=== PATIENT | female | born 1935 | race Caucasian/White ===

== ENCOUNTER → 2017-01-21 08:38 | Outpatient (CLI) | payer MEDICARE, OTHER ==
[2015-11-09 12:22] VITALS: BMI 21.2
[~2017-01-21 08:38] MED LIST: ANDROGEL5 GM; ATIVAN1 MG PO; BAYER CHEWABLE81 MG PO; BUMEX 1 MG TAB1 MG PO; CALTRATE-600600 MG PO; COREG 3.1253.125 MG PO; COZAAR50 MG PO; CRANBERRY; CRESTOR10 MG PO; DESERYL100 MG PO; FIRST-PROG25 MG/SUPP; KLOR-CON 1010 MEQ PO; LEVOTHROID75 MCG PO; LISINOPRIL2.5 MG PO; MAG-OX 400 MG400 MG PO; NITROSTAT0.4 MG SL; PLAVIX75 MG PO; PRAVACHOL40 MG PO; ZAROXOLYN2.5 MG PO
== END | disposition home or self-care (01) ==
LOC: D.RT 08:00
DX: Z51.81 Encounter for therapeutic drug level monitoring (principal); Z79.899 Other long term (current) drug therapy

== ENCOUNTER → 2017-04-12 14:52 | Outpatient (CLI) | payer MEDICARE, OTHER ==
[2015-11-09 12:22] VITALS: BMI 21.2
== END | disposition home or self-care (01) ==
LOC: D.MAMMO 09:45
DX: Z12.31 Encounter for screening mammogram for malignant neoplasm of breast (principal)

== ENCOUNTER → 2017-09-20 14:19 | Outpatient (CLI) | payer MEDICARE, OTHER ==
[2015-11-09 12:22] VITALS: BMI 21.2
== END | disposition home or self-care (01) ==
LOC: D.RT 14:00
DX: I48.91 Unspecified atrial fibrillation (principal); Z79.899 Other long term (current) drug therapy

== ENCOUNTER 2018-07-30 10:32 | Inpatient (IN) | payer MEDICARE, OTHER ==
[~2018-07-30] VITALS: Ht 157.5 cm; Wt 52.7 kg
--- NOTE | ~2018-07-30 | MORECARE ---
CASE MANAGEMENT DISCHARGE SUMMARY PATIENT: CLINTON SCHUMACHER UNIT: [id number] ADM DATE: 07/30/18 AGE: 82 : 37 SEX: F ROOM/BED: D.2229 AUTHOR: FLASHDOC PHYSICIAN: REFERRING PHYSICIAN: DAVE GRAHAM MD DATE OF SERVICE: 08/01/18 Discharge Plan Patient Name: CLINTON SCHUMACHER Facility: [facility]:[place] : 1935 Planned Disposition: Home Anticipated Discharge Date: Discharge Date: Expected LOS: Initial Reviewer: [id number] Initial Review Date: 07/30/2018 Generated: 08/01/18 12:58 pm Comments DCP- Discharge Planning Updated by [email or web address]: Bertha Tripathi on 08/01/18 10:[address] CM met with patient per request. She is concerned that [facility] have not seen her yet. I called Sonia with [facility] and she states that they had called and wanted services to wait until Saturday. She states per the 's request, she tried to call again today and his phone was not accepting calls at this time. States she will try and call patient and son again today to see if they will allow her to come out. I informed patient and gave her the number to [facility]. CM will continue to follow and assist with discharge planning/needs. DCP- Discharge Planning Updated by [email or web address]: Chrissie Uli on 07/30/18 2:[address] CM met with patient in ER/room to discuss dc needs/plans. Patient provided verbal consent to discuss current and ongoing needs with/in the presence of her daughter, Marcela Martinez #[phone], .CM discussed availability of Home Health, Rehab Services and Medical Equipment. PCP: Dr. Pineda ([facility] has not seen him in a long time). [facility]. HHS: None. DME: Uses no medical equipment. Emergency Contact: Marcela Martinez #[phone], Killian Schumacher (spouse who is in hospital) #[phone]. Patient states she feels safe returning to the home environment and at this time, she does not feel she requires additional services upon discharge. CM will continue to follow and assist with dc needs/plans PRN. Patient states she has been up here in the hospital for past 2 weeks taking care of her . Chrissie Mcnally RN CM DCPIA - Discharge Planning Initial Assessment Updated by [email or web address]: Chrissie Mcnally on 07/30/18 3:56 pm * Is the patient Alert and Oriented? Yes * How many steps to enter\exit or inside your home? * PCP Dr. Pineda * Pharmacy [facility] * Preadmission Environment Home with Family * ADLs Independent * Equipment None * Other Equipment Patient states her has all the equipement, but she does not use any. * List name and contact numbers for known caregivers / representatives who currently or will assist patient after discharge: Marcela Martinez (dtr) [phone] Killian Schumacher (spouse) #[phone] * Verbal permission to speak to the caregivers and representatives has been obtained from the patient. Yes * Community resources currently utilized None * Please name any agencies selected above. NA * Additional services required to return to the preadmission environment? No * Can the patient safely return to the preadmission environment? Yes * Has this patient been hospitalized within the prior 30 days at any hospital? No Last DP export: 08/01/18 9:30 Patient Name: CLINTON SCHUMACHER Page 22127 at 1158 All edits/amendments must be made on the electronic document DICTATION DATE: 08/01/181156 POWER TOOL REPAIR TECHNICIAN: RENEE 08/01/181156 RPT#: [id number] DC DATE: STATUS: ADM IN [facility] [address] [place] [address] END OF REPORT
--- NOTE | ~2018-07-30 | MORECARE ---
CASE MANAGEMENT DISCHARGE SUMMARY PATIENT: CLINTON SCHUMACHER UNIT: [id number] ADM DATE: 07/30/18 AGE: 82 : 37 SEX: F ROOM/BED: D.2229 AUTHOR: FLASH,DOC PHYSICIAN: REFERRING PHYSICIAN: DAVE GRAHAM MD DATE OF SERVICE: 08/03/18 Discharge Plan Patient Name: CLINTON SCHUMACHER Facility: [facility]:[place] : 1935 Planned Disposition: Home Anticipated Discharge Date: 08/03/18 Discharge Date: 08/03/2018 Expected LOS: 4 Initial Reviewer: [email or web address] Initial Review Date: 07/30/2018 Generated: 08/03/18 2:45 pm Comments DCP- Discharge Planning Updated by [email or web address]: Audra Millers on 08/03/18 12:[address] CM MET WITH THE PATIENT. SHE DOES NOT FEEL SHE NEEDS ANY HOME HEALTH SERVICES. CM EXPLAINED HOW TO OBTAIN SERVICES SHOULD SHE CHANGE HER MIND. DISCHARGE IMM EXPLAINED AND PATIENT SIGNED. SHE AWAITS HER TRANSPORTATION TO HOME. DENIES ANY NEEDS. DCP- Discharge Planning Updated by [email or web address]: Bertha Tripathi on 08/01/18 10:[address] CM met with patient per request. She is concerned that [facility] have not seen her yet. I called Sonia with [facility] and she states that they had called and wanted services to wait until Saturday. She states per the 's request, she tried to call again today and his phone was not accepting calls at this time. States she will try and call patient and son again today to see if they will allow her to come out. I informed patient and gave her the number to [facility]. CM will continue to follow and assist with discharge planning/needs. DCP- Discharge Planning Updated by [id number]: Chrissie Mcnally on 07/30/18 2:[address] CM met with patient in ER/room to discuss dc needs/plans. Patient provided verbal consent to discuss current and ongoing needs with/in the presence of her daughter, Marcela Martinez #[phone], .CM discussed availability of Home Health, Rehab Services and Medical Equipment. PCP: Dr. Pineda (states has not seen him in a long time). [facility] [place] HHS: None. DME: Uses no medical equipment. Emergency Contact: Marcela Martinez #[phone], Killian Schumacher (spouse who is in hospital) #[phone]. Patient states she feels safe returning to the home environment and at this time, she does not feel she requires additional services upon discharge. CM will continue to follow and assist with dc needs/plans PRN. Patient states she has been up here in the hospital for past 2 weeks taking care of her . Chrissie Mcnally RN CM DCPIA - Discharge Planning Initial Assessment Updated by [email or web address]: Chrissie Mcnally on 07/30/18 3:56 pm * Is the patient Alert and Oriented? Yes * How many steps to enter\exit or inside your home? * PCP Dr. Pineda * Pharmacy [facility] * Preadmission Environment Home with Family * ADLs Independent * Equipment None * Other Equipment Patient states her has all the equipement, but she does not use any. * List name and contact numbers for known caregivers / representatives who currently or will assist patient after discharge: Marcela Martinez (dtr) [phone] Killian Schumacher (spouse) #[phone] * Verbal permission to speak to the caregivers and representatives has been obtained from the patient. Yes * Community resources currently utilized None * Please name any agencies selected above. NA * Additional services required to return to the preadmission environment? No * Can the patient safely return to the preadmission environment? Yes * Has this patient been hospitalized within the prior 30 days at any hospital? No Coverage Notice Reviewer: [id number] Tyshawn Davila Notice Issued Date-Time: 08/03/2018 11:45 Notice Type: IM Discharge Notice Notice Delivered To: Patient Relationship to Patient: Analytical Scientist Name: Delivery Method: HAND - Hand Delivered Deanna Days: Prior Verbal Notification: Recipient Understood Notice: Yes Recipient Signature: Yes Med Rec Note Co-signed by Attending: Coverage Notice Comment: CM MT WITH THE PATIENT. EXPLAINED DISCHARGE IMM. SHE IS FAMILIAR WITH THE FORM. HAD NO QUESTIONS. COPY TO THE PATIENT. HARD COPY TO THE CHART. Last DP export: 08/03/18 12:38 Patient Name: CLINTON SCHUMACHER Page [id number] at 1345 All edits/amendments must be made on the electronic document DICTATION DATE: 08/03/18 134 DRY CELL ASSEMBLY MACHINE TENDER: RENEE 08/03/18 1345 RPT#: [id number] DC DATE:08/03/18 STATUS: DIS IN [facility] [address] [place] [address] END OF REPORT
--- NOTE | ~2018-07-30 | MORECARE ---
CASE MANAGEMENT DISCHARGE SUMMARY PATIENT: CLINTON SCHUMACHER UNIT: [id number] ADM DATE: 07/30/18 AGE: 82 : 37 SEX: F ROOM/BED: D.2229 AUTHOR: FLASH,DOC PHYSICIAN: REFERRING PHYSICIAN: DAVE GRAHAM MD DATE OF SERVICE: 07/30/18 Discharge Plan Patient Name: CLINTON SCHUMACHER Facility: [facility]:[place] : 1935 Planned Disposition: Anticipated Discharge Date: Discharge Date: Expected LOS: Initial Reviewer: [email or web address] Initial Review Date: 07/30/2018 Generated: 07/30/18 5:03 pm Comments DCP- Discharge Planning Updated by [email or web address]: Chrissie Mcnally on 07/30/18 2:[address] CM met with patient in ER/room to discuss dc needs/plans. Patient provided verbal consent to discuss current and ongoing needs with/in the presence of her daughter, Marcela Martinez #[phone], .CM discussed availability of Home Health, Rehab Services and Medical Equipment. PCP: Dr. Pineda (states has not seen him in a long time). Pharmacy: [facility]. HHS: None. DME: Uses no medical equipment. Emergency Contact: Marcela Martinez #[phone], Killian Schumacher (spouse who is in hospital) #[phone]. Patient states she feels safe returning to the home environment and at this time, she does not feel she requires additional services upon discharge. CM will continue to follow and assist with dc needs/plans PRN. Patient states she has been up here in the hospital for past 2 weeks taking care of her . Chrissie Mcnally RN, CM DCPIA - Discharge Planning Initial Assessment Updated by [email or web address]: Chrissie Mcnally on 07/30/18 3:56 pm * Is the patient Alert and Oriented? Yes * How many steps to enter\exit or inside your home? * PCP Dr. Pineda * Pharmacy [facility] * Preadmission Environment Home with Family * ADLs Independent * Equipment None * Other Equipment Patient states her has all the equipement, but she does not use any. * List name and contact numbers for known caregivers / representatives who currently or will assist patient after discharge: Marcela Martinez (dtr) [phone] Killian Schumacher (spouse) #[phone] * Verbal permission to speak to the caregivers and representatives has been obtained from the patient. Yes * Community resources currently utilized None * Please name any agencies selected above. NA * Additional services required to return to the preadmission environment? No * Can the patient safely return to the preadmission environment? Yes * Has this patient been hospitalized within the prior 30 days at any hospital? No Last DP export: 07/30/18 2:54 Patient Name: CLINTON SCHUMACHER Page 63919 at 1603 All edits/amendments must be made on the electronic document DICTATION DATE: 07/30/181602 LIVESTOCK FARMWORKER: RENEE 07/30/181602 RPT#: [id number] DC DATE: STATUS: ADM IN [facility] [address] [place] [address] END OF REPORT
--- NOTE | ~2018-07-30 | MORECARE ---
CASE MANAGEMENT DISCHARGE SUMMARY PATIENT: CLINTON SCHUMACHER UNIT: [id number] ADM DATE: 07/30/18 AGE: 82 : 37 SEX: F ROOM/BED: D.2229 AUTHOR: FLASH,DOC PHYSICIAN: REFERRING PHYSICIAN: DAVE GRAHAM MD DATE OF SERVICE: 08/01/18 Discharge Plan Patient Name: CLINTON SCHUMACHER Facility: [facility]:[place] : 1935 Planned Disposition: Home Anticipated Discharge Date: Discharge Date: Expected LOS: Initial Reviewer: [email or web address] Initial Review Date: 07/30/2018 Generated: 08/01/18 11:29 am Comments DCP- Discharge Planning Updated by [email or web address]: Chrissie Mcnally on 07/30/18 2:[address] CM met with patient in ER/room to discuss dc needs/plans. Patient provided verbal consent to discuss current and ongoing needs with/in the presence of her daughter, Marcela Martinez #[phone], .CM discussed availability of Home Health, Rehab Services and Medical Equipment. PCP: Dr. Pineda (states has not seen him in a long time). Pharmacy: [facility]. HHS: None. DME: Uses no medical equipment. Emergency Contact: Marcela Martinez #[phone], Killian Schumacher (spouse who is in hospital) #[phone]. Patient states she feels safe returning to the home environment and at this time, she does not feel she requires additional services upon discharge. CM will continue to follow and assist with dc needs/plans PRN. Patient states she has been up here in the hospital for past 2 weeks taking care of her . Chrissie Mcnally RN, CM DCPIA - Discharge Planning Initial Assessment Updated by [email or web address]: Chrissie Mcnally on 07/30/18 3:56 pm * Is the patient Alert and Oriented? Yes * How many steps to enter\exit or inside your home? * PCP Dr. Pineda * Pharmacy [facility] * Preadmission Environment Home with Family * ADLs Independent * Equipment None * Other Equipment Patient states her has all the equipement, but she does not use any. * List name and contact numbers for known caregivers / representatives who currently or will assist patient after discharge: Marcela Martinez (dtr) [phone] Killian Schumacher (spouse) #[phone] * Verbal permission to speak to the caregivers and representatives has been obtained from the patient. Yes * Community resources currently utilized None * Please name any agencies selected above. NA * Additional services required to return to the preadmission environment? No * Can the patient safely return to the preadmission environment? Yes * Has this patient been hospitalized within the prior 30 days at any hospital? No Last DP export: 07/30/18 3:03 Patient Name: CLINTON SCHUMACHER Page 68728 at 1030 All edits/amendments must be made on the electronic document DICTATION DATE: 08/01/18 102 BUSINESS INSTRUCTOR: REENE 08/01/18 1029 RPT#: [id number] DC DATE: STATUS: ADM IN [facility] [address] [place] [address] END OF REPORT
--- NOTE | ~2018-07-30 | MORECARE ---
CASE MANAGEMENT DISCHARGE SUMMARY PATIENT: CLINTON SCHUMACHER UNIT: [id number] ADM DATE: 07/30/18 AGE: 82 : 37 SEX: F ROOM/BED: D.2229 AUTHOR: FLASH,DOC PHYSICIAN: REFERRING PHYSICIAN: DAVE GRAHAM MD DATE OF SERVICE: 08/03/18 Discharge Plan Patient Name: CLINTON SCHUMACHER Facility: [facility]:[place] : 1935 Planned Disposition: Home Anticipated Discharge Date: 08/03/18 Discharge Date: 08/03/2018 Expected LOS: 4 Initial Reviewer: [id number] Initial Review Date: 07/30/2018 Generated: 08/03/18 2:38 pm Comments DCP- Discharge Planning Updated by [email or web address]: Bertha Tripathi on 08/01/18 10:[address] CM met with patient per request. She is concerned that [facility] have not seen her yet. I called Sonia with [facility] and she states that they had called and wanted services to wait until Saturday. She states per the 's request, she tried to call again today and his phone was not accepting calls at this time. States she will try and call patient and son again today to see if they will allow her to come out. I informed patient and gave her the number to [facility]. CM will continue to follow and assist with discharge planning/needs. DCP- Discharge Planning Updated by [email or web address]: Chrissie Uli on 07/30/18 2:[address] CM met with patient in ER/room to discuss dc needs/plans. Patient provided verbal consent to discuss current and ongoing needs with/in the presence of her daughter, Marcela Maritnez #[phone], .CM discussed availability of Home Health, Rehab Services and Medical Equipment. PCP: Dr. Pineda ([facility] has not seen him in a long time). [facility]. HHS: None. DME: Uses no medical equipment. Emergency Contact: Marcela Martinez #[phone], Killian Schumacher (spouse who is in hospital) #[phone]. Patient states she feels safe returning to the home environment and at this time, she does not feel she requires additional services upon discharge. CM will continue to follow and assist with dc needs/plans PRN. Patient states she has been up here in the hospital for past 2 weeks taking care of her . Chrissie Mcnally RN CM DCPIA - Discharge Planning Initial Assessment Updated by [id number]: Chrissie Mcnally on 07/30/18 3:56 pm * Is the patient Alert and Oriented? Yes * How many steps to enter\exit or inside your home? * PCP Dr. Pineda * Pharmacy [facility] * Preadmission Environment Home with Family * ADLs Independent * Equipment None * Other Equipment Patient states her has all the equipement, but she does not use any. * List name and contact numbers for known caregivers / representatives who currently or will assist patient after discharge: Marcela Martinez (dtr) [phone] Killian Schumacher (spouse) #[phone] * Verbal permission to speak to the caregivers and representatives has been obtained from the patient. Yes * Community resources currently utilized None * Please name any agencies selected above. NA * Additional services required to return to the preadmission environment? No * Can the patient safely return to the preadmission environment? Yes * Has this patient been hospitalized within the prior 30 days at any hospital? No Last DP export: 08/01/18 10:58 Patient Name: CLINTON SCHUMACHER Page 31425 at 1338 All edits/amendments must be made on the electronic document DICTATION DATE: 08/03/181336 SHEARING SHED HAND: RENEE 08/03/18 1337 RPT#: [id number] DC DATE:08/03/18 STATUS: DIS IN [facility] [address] [place] [address] END OF REPORT
--- NOTE | ~2018-07-30 | MORECARE ---
CASE MANAGEMENT DISCHARGE SUMMARY PATIENT: CLNITON SCHUMACHER UNIT: [id number] ADM DATE: 07/30/18 AGE: 82 : 37 SEX: F ROOM/BED: D.2229 AUTHOR: FLASH,DOC PHYSICIAN: REFERRING PHYSICIAN: DAVE GRAHAM MD DATE OF SERVICE: 08/04/18 Discharge Plan Patient Name: CLINTON SCHUMACHER Facility: [facility]:[place] : 1935 Planned Disposition: Home Anticipated Discharge Date: 08/03/18 Discharge Date: 08/03/2018 Expected LOS: 4 Initial Reviewer: [id number] Initial Review Date: 07/30/2018 Generated: 08/04/18 1:56 pm Comments DCP- Discharge Planning Updated by [id number]: Audra Millers on 08/03/18 12:[address] CM MET WITH THE PATIENT. SHE DOES NOT FEEL SHE NEEDS ANY HOME HEALTH SERVICES. CM EXPLAINED HOW TO OBTAIN SERVICES SHOULD SHE CHANGE HER MIND. DISCHARGE IMM EXPLAINED AND PATIENT SIGNED. SHE AWAITS HER TRANSPORTATION TO HOME. DENIES ANY NEEDS. DCP- Discharge Planning Updated by [id number]: Bertha Tripathi on 08/01/18 10:[address] CM met with patient per request. She is concerned that [facility] have not seen her yet. I called Sonia with [facility] and she states that they had called and wanted services to wait until Saturday. She states per the 's request, she tried to call again today and his phone was not accepting calls at this time. States she will try and call patient and son again today to see if they will allow her to come out. I informed patient and gave her the number to [facility]. CM will continue to follow and assist with discharge planning/needs. DCP- Discharge Planning Updated by [email or web address]: Chrissie Mcnally on 07/30/18 2:[address] CM met with patient in ER/room to discuss dc needs/plans. Patient provided verbal consent to discuss current and ongoing needs with/in the presence of her daughter, Marcela Martinez #[phone], .CM discussed availability of Home Health, Rehab Services and Medical Equipment. PCP: Dr. Pineda (states has not seen him in a long time). [facility] HHS: None. DME: Uses no medical equipment. Emergency Contact: Marcela Martinez #[phone], Killian Schumacher (spouse who is in hospital) #[phone]. Patient states she feels safe returning to the home environment and at this time, she does not feel she requires additional services upon discharge. CM will continue to follow and assist with dc needs/plans PRN. Patient states she has been up here in the hospital for past 2 weeks taking care of her . Chrissie Mcnally RN CM DCPIA - Discharge Planning Initial Assessment Updated by [email or web address]: Chrissie Mcnally on 07/30/18 3:56 pm * Is the patient Alert and Oriented? Yes * How many steps to enter\exit or inside your home? * PCP Dr. Pineda * Pharmacy [facility] * Preadmission Environment Home with Family * ADLs Independent * Equipment None * Other Equipment Patient states her has all the equipement, but she does not use any. * List name and contact numbers for known caregivers / representatives who currently or will assist patient after discharge: Marcela Martinez (dtr) [phone] Killian Schumacher (spouse) #[phone] * Verbal permission to speak to the caregivers and representatives has been obtained from the patient. Yes * Community resources currently utilized None * Please name any agencies selected above. NA * Additional services required to return to the preadmission environment? No * Can the patient safely return to the preadmission environment? Yes * Has this patient been hospitalized within the prior 30 days at any hospital? No Coverage Notice Reviewer: [id number] Tyshawn Davila Notice Issued Date-Time: 08/03/2018 11:45 Notice Type: IM Discharge Notice Notice Delivered To: Patient Relationship to Patient: Marketing Outreach Coordinator Name: Delivery Method: HAND - Hand Delivered Deanna Days: Prior Verbal Notification: Recipient Understood Notice: Yes Recipient Signature: Yes Med Rec Note Co-signed by Attending: Coverage Notice Comment: CM MT WITH THE PATIENT. EXPLAINED DISCHARGE IMM. SHE IS FAMILIAR WITH THE FORM. HAD NO QUESTIONS. COPY TO THE PATIENT. HARD COPY TO THE CHART. Last DP export: 08/03/18 12:45 Patient Name: CLINTON SCHUMACHER Page 43095 at 1256 All edits/amendments must be made on the electronic document DICTATION DATE: 08/04/18 1256 PATIENT CARRIER: RENEE 08/04/18 1256 RPT#: [id number] DC DATE:08/03/18 STATUS: DIS IN [facility] [address] [place] [address] END OF REPORT
--- NOTE | ~2018-07-30 | MORECARE ---
CASE MANAGEMENT DISCHARGE SUMMARY PATIENT: CLINTON SCHUMACHER UNIT: [id number] ADM DATE: 07/30/18 AGE: 82 : 39 SEX: F ROOM/BED: D.2229 AUTHOR: LEIDA VIDALES PHYSICIAN: REFERRING PHYSICIAN: DAVE GRAHAM MD DATE OF SERVICE: 07/30/18 Discharge Plan Patient Name: CLINTON SCHUMACHER Facility: [facility]:[place] : 1935 Planned Disposition: Anticipated Discharge Date: Discharge Date: Expected LOS: Initial Reviewer: [email or web address] Initial Review Date: 07/30/2018 Generated: 07/30/18 4:54 pm Comments DCP- Discharge Planning Updated by [id number]: Chrissie Mcnally on 07/30/18 2:[address] CM met with patient in ER/room to discuss dc needs/plans. Patient provided verbal consent to discuss current and ongoing needs with/in the presence of her daughter, Marcela Martinez #[phone], .CM discussed availability of Home Health, Rehab Services and Medical Equipment. PCP: Dr. Pineda (states has not seen him in a long time). [facility] HHS: None. DME: Uses no medical equipment. Emergency Contact: Marcela Martinez #[phone], Killian Schumacher (spouse who is in hospital) #[phone]. Patient states she feels safe returning to the home environment and at this time, she does not feel she requires additional services upon discharge. CM will continue to follow and assist with dc needs/plans PRN. Patient states she has been up here in the hospital for past 2 weeks taking care of her . Chrissie Mcnally RN, CM Patient Name: CLINTON SCHUMACHER Page 12392 at 1554 All edits/amendments must be made on the electronic document DICTATION DATE: 07/30/181553 SENIOR PIPING DESIGNER: RENEE 07/30/181553 RPT#: [id number] DC DATE: STATUS: ADM IN [facility] [address] [place] [address] END OF REPORT
[2018-07-30 11:03] LABS: BASOPHILS 0.1 % (0-2); EOSINOPHILS 0 % (0-7); HEMATOCRIT 37.3 % (36.0-48.0); IMMATURE GRANULOCYTES 0.1 % (0-5); LYMPHOCYTES 15.9 % (15-50); MCH 29.8 pg (26.0-34.0); MCHC 34.9 g/dL (31.0-37.0); MCV 85.6 fL (80.0-100.0); MEAN PLATELET VOLUME 10.7 fL (7.4-10.4); MONOCYTES 3.3 % (2-11); NEUTROPHILS 80.6 % (40-80); RBC 4.36 10x6/uL (4.00-5.40); RDW 13.4 % (11.5-14.5); WBC 7.5 10x3/uL (4.8-10.8)
[2018-07-30 11:07] LABS: PLATELET COUNT 177 10x3/uL (130-400)
[2018-07-30 11:20] LABS: AMORPHOUS SEDIMENT <1+ /lpf (NONE SEEN); APPEARANCE CLOUDY (CLEAR); BACTERIA MANY /hpf (NONE SEEN); BILIRUBIN NEGATIVE (NEGATIVE); COLOR YELLOW (YELLOW); EPITHELIAL CELLS 0-5 /hpf (0-5); GLUCOSE 50 mg/dL (NEGATIVE); KETONE LARGE mg/dL (NEGATIVE); MUCUS <1+ /lpf (NONE SEEN); NITRITE POSITIVE (NEGATIVE); PROTEIN TRACE mg/dL (NEGATIVE); TALC POWDER CRYSTALS 0-5 /hpf (NONE SEEN); WHITE CELLS - URINE 0-5 /hpf (0-5)
[2018-07-30 11:22] LABS: ANION GAP 13.8 mmol/L (8-16); BILIRUBIN - TOTAL 0.84 mg/dL (0.2-1.3); CALCIUM 9.5 mg/dL (8.5-10.1); CARBON DIOXIDE 27.3 mmol/L (21.0-32.0); CREATININE - SERUM 1.1 mg/dL (0.6-1.3); POTASSIUM - SERUM 3.1 mmol/L (3.5-5.1); PROTEIN - SERUM 7.9 g/dL (6.4-8.2)
[2018-07-30 11:30] LABS: THYROID STIMULATING HORMONE 0.12 uIU/mL (0.36-3.74); TROPONIN-I 0.033 ng/mL (0.000-0.060)
[2018-07-30 20:00] VITALS: BP 124/55
[2018-07-31 04:00] VITALS: BP 105/55
[2018-07-31 08:34] VITALS: BP 111/57
[2018-07-31 10:31] LABS: ALBUMIN 3.1 g/dL (3.4-5.0); BILIRUBIN - TOTAL 0.84 mg/dL (0.2-1.3); CALCIUM 8.6 mg/dL (8.5-10.1); CARBON DIOXIDE 22.4 mmol/L (21.0-32.0); CREATININE - SERUM 0.9 mg/dL (0.6-1.3); POTASSIUM - SERUM 3.4 mmol/L (3.5-5.1); PROTEIN - SERUM 6.5 g/dL (6.4-8.2)
[2018-07-31 13:25] VITALS: BMI 21.4
[2018-07-31 15:45] VITALS: BP 110/56
[2018-07-31 20:00] VITALS: BP 125/56
[2018-08-01] VITALS: BP 133/55
[2018-08-01 04:00] VITALS: BP 126/54
[2018-08-01 07:55] VITALS: BP 128/62
[2018-08-01 08:01] LABS: ALBUMIN 2.8 g/dL (3.4-5.0); ALKALINE PHOSPHATASE 55 U/L (46-116); ALT (SGPT) 19 U/L (10-68); BILIRUBIN - TOTAL 0.55 mg/dL (0.2-1.3); CALCIUM 8.5 mg/dL (8.5-10.1); CHLORIDE - SERUM 108 mmol/L (98-107); CHOL - HDL RATIO 3.5 ratio (2.3-4.1); CHOLESTEROL, TOTAL 169 mg/dL (0-200); CREATININE - SERUM 0.7 mg/dL (0.6-1.3); HDL CHOLESTEROL 48 mg/dL (32-96); LDL CHOLESTEROL 106 mg/dL (0-100); LDL-HDL RATIO 2.2 ratio (1.5-3.5); LIPASE 940 U/L (73-393); PROTEIN - SERUM 5.8 g/dL (6.4-8.2); SODIUM 142 mmol/L (136-145); TRIGLYCERIDE 76 mg/dL (30-200); UREA NITROGEN 14 mg/dL (7-18); eGFR NON AFRICAN AMERICAN 85 mL/min (90-120)
[2018-08-01 08:02] LABS: AMYLASE - SERUM 293 U/L (25-115); CALC OSMOLALITY 283 mosm/kg (275-300); GLUCOSE 96 mg/dL (74-106); POTASSIUM - SERUM 4.2 mmol/L (3.5-5.1)
[2018-08-01] MEDS ORDERED: TIROSINT75 MCG PO (11:49)
[2018-08-01 17:35] VITALS: BP 114/60
[2018-08-01 20:23] VITALS: BP 142/61
[2018-08-02 03:53] VITALS: BP 142/61; Ht 157.5 cm; Wt 52.7 kg
[2018-08-02 04:43] VITALS: BP 108/55
[2018-08-02 05:58] LABS: ALBUMIN 2.7 g/dL (3.4-5.0); ALKALINE PHOSPHATASE 54 U/L (46-116); CALCIUM 8.6 mg/dL (8.5-10.1); CARBON DIOXIDE 25.6 mmol/L (21.0-32.0); CHLORIDE - SERUM 110 mmol/L (98-107); CREATININE - SERUM 0.7 mg/dL (0.6-1.3); GLUCOSE 119 mg/dL (74-106); LIPASE 1261 U/L (73-393); POTASSIUM - SERUM 3.9 mmol/L (3.5-5.1); PROTEIN - SERUM 5.9 g/dL (6.4-8.2); SODIUM 143 mmol/L (136-145); eGFR NON AFRICAN AMERICAN 85 mL/min (90-120)
[2018-08-02 05:59] LABS: ALT (SGPT) 14 U/L (10-68); AMYLASE - SERUM 137 U/L (25-115); CALC OSMOLALITY 283 mosm/kg (275-300); UREA NITROGEN 7 mg/dL (7-18)
[2018-08-02 07:51] VITALS: BP 141/70
[2018-08-02 12:55] VITALS: BP 149/71
[2018-08-02 20:00] VITALS: BP 120/70
[2018-08-03 04:00] VITALS: BP 80/53
[2018-08-03 05:08] LABS: CALC OSMOLALITY 281 mosm/kg (275-300); CARBON DIOXIDE 25.5 mmol/L (21.0-32.0); CHLORIDE - SERUM 110 mmol/L (98-107); CREATININE - SERUM 0.7 mg/dL (0.6-1.3); GLUCOSE 105 mg/dL (74-106); LIPASE 833 U/L (73-393); POTASSIUM - SERUM 4.1 mmol/L (3.5-5.1); SODIUM 143 mmol/L (136-145); eGFR NON AFRICAN AMERICAN 85 mL/min (90-120)
[2018-08-03 05:24] LABS: AMYLASE - SERUM 95 U/L (25-115); UREA NITROGEN 5 mg/dL (7-18)
[2018-08-03 08:34] VITALS: BP 120/73
== END 2018-08-03 13:17 | disposition home or self-care (01) | DRG 439 ==
LOC: D.ER 10:32 → D.EDHOLD 13:27 → D.MS 13:27
PROVIDERS: Emergency Medicine; Internal Medicine Nephrology
DX: K85.90 Acute pancreatitis without necrosis or infection, unspecified (principal); N39.0 Urinary tract infection, site not specified; E87.6 Hypokalemia; F41.9 Anxiety disorder, unspecified; I25.10 Atherosclerotic heart disease of native coronary artery without angina pectoris; E03.9 Hypothyroidism, unspecified

== ENCOUNTER → 2018-11-13 10:09 | Outpatient (CLI) | payer MEDICARE, OTHER ==
[2018-08-02 03:53] VITALS: BMI 21.2
[~2018-11-13 10:09] MED LIST changes: +TIROSINT75 MCG PO
== END | disposition home or self-care (01) ==
LOC: D.RAD 10:09
DX: K21.9 Gastro-esophageal reflux disease without esophagitis (principal)

== ENCOUNTER 2019-06-16 12:50 | Emergency (ER) | payer MEDICARE, OTHER ==
[~2019-06-16] VITALS: Ht 157.5 cm; Wt 45.9 kg
[2019-06-16 13:36] VITALS: Ht 157.5 cm; Wt 45.9 kg
[2019-06-16 14:28] LABS: BASOPHILS 0.7 % (0-2); EOSINOPHILS 1.6 % (0-7); HEMATOCRIT 41.2 % (36.0-48.0); HEMOGLOBIN 14.3 g/dL (12-16); IMMATURE GRANULOCYTES 0.1 % (0-5); LYMPHOCYTES 40.6 % (15-50); MCH 29.5 pg (26.0-34.0); MCHC 34.7 g/dL (31.0-37.0); MCV 85.1 fL (80.0-100.0); MEAN PLATELET VOLUME 10.6 fL (7.4-10.4); MONOCYTES 9.1 % (2-11); NEUTROPHILS 47.9 % (40-80); PLATELET COUNT 159 10x3/uL (130-400); RBC 4.84 10x6/uL (4.00-5.40); RDW 13.3 % (11.5-14.5); WBC 7.6 10x3/uL (4.8-10.8)
[2019-06-16 14:36] LABS: ALKALINE PHOSPHATASE 76 U/L (46-116); ALT (SGPT) 14 U/L (10-68); BILIRUBIN - TOTAL 0.78 mg/dL (0.2-1.3); CALC OSMOLALITY 277 mosm/kg (275-300); CALCIUM 9.6 mg/dL (8.5-10.1); CARBON DIOXIDE 21.7 mmol/L (21.0-32.0); CHLORIDE - SERUM 105 mmol/L (98-107); CREATININE - SERUM 1.1 mg/dL (0.6-1.3); GLUCOSE 85 mg/dL (74-106); POTASSIUM - SERUM 5.4 mmol/L (3.5-5.1); PROTEIN - SERUM 7.9 g/dL (6.4-8.2); SODIUM 139 mmol/L (136-145); UREA NITROGEN 16 mg/dL (7-18); eGFR NON AFRICAN AMERICAN 50 mL/min (90-120)
[2019-06-16 14:39] LABS: AMYLASE - SERUM 83 U/L (25-115); LIPASE 327 U/L (73-393)
[2019-06-16 14:41] LABS: TROPONIN-I < 0.017 ng/mL (0.000-0.060)
[2019-06-16 15:11] LABS: APPEARANCE CLEAR (CLEAR); COLOR STRAW (YELLOW); NITRITE NEGATIVE (NEGATIVE); SPECIFIC GRAVITY 1.005 (1.005-1.020)
[2019-06-16 15:12] LABS: BILIRUBIN NEGATIVE (NEGATIVE); GLUCOSE NEGATIVE (NEGATIVE); KETONE NEGATIVE (NEGATIVE); PROTEIN NEGATIVE (NEGATIVE); UROBILINOGEN NORMAL (NORMAL)
[2019-06-16 17:02] VITALS: BP 146/59
== END 2019-06-16 16:40 | disposition home or self-care (01) ==
LOC: D.ER 12:50
PROVIDERS: Family Medicine
DX: R10.9 Unspecified abdominal pain (principal); F41.9 Anxiety disorder, unspecified; R53.81 Other malaise

== ENCOUNTER → 2019-08-17 15:02 | Outpatient (CLI) | payer MEDICARE, OTHER ==
[2019-06-16 13:36] VITALS: BMI 18.5
== END | disposition home or self-care (01) ==
LOC: D.RAD 15:02
PROVIDERS: ATTEND Internal Medicine Gastroenterology
DX: K59.00 Constipation, unspecified (principal)

== ENCOUNTER 2021-03-02 15:43 | Emergency (ER) | payer MEDICARE, OTHER ==
[~2021-03-02] VITALS: Ht 157.5 cm; Wt 45.5 kg
[2021-03-02 15:58] VITALS: Ht 157.5 cm; Wt 45.5 kg
[2021-03-02 16:31] LABS: BASOPHILS 0.8 % (0-2); EOSINOPHILS 1.5 % (0-7); HEMOGLOBIN 14.9 g/dL (12-16); LYMPHOCYTES 28.4 % (15-50); MCH 28.7 pg (26.0-34.0); MCHC 33.2 g/dL (31.0-37.0); MCV 86.5 fL (80.0-100.0); MONOCYTES 6.2 % (2-11); NEUTROPHILS 63.1 % (40-80); WBC 8.9 10x3/uL (4.8-10.8)
[2021-03-02 16:43] LABS: PLATELET COUNT 213 10x3/uL (130-400)
[2021-03-02 19:38] LABS: CALC OSMOLALITY 290 mosm/kg (275-300); CALCIUM 9.7 mg/dL (8.5-10.1); CARBON DIOXIDE 22.1 mmol/L (21.0-32.0); CHLORIDE - SERUM 100 mmol/L (98-107); CREATININE - SERUM 1.8 mg/dL (0.6-1.3); SODIUM 136 mmol/L (136-145); UREA NITROGEN 48 mg/dL (7-18); eGFR NON AFRICAN AMERICAN 28 mL/min (90-120)
[2021-03-02 19:39] LABS: GLUCOSE 211 mg/dL (74-106)
[2021-03-02 19:51] LABS: ALBUMIN 3.9 g/dL (3.4-5.0); ALKALINE PHOSPHATASE 73 U/L (30-120); ALT (SGPT) 18 U/L (10-68); BILIRUBIN - TOTAL 0.78 mg/dL (0.2-1.3); CREATINE KINASE 37 UL (21-215); PROTEIN - SERUM 7.7 g/dL (6.4-8.2)
[2021-03-02 19:52] LABS: TROPONIN-I < 0.017 ng/mL (0.000-0.060)
[2021-03-02 20:56] VITALS: BP 117/96
== END 2021-03-02 20:56 | disposition home or self-care (01) ==
LOC: D.ER 15:43
PROVIDERS: Emergency Medicine; Family Medicine
DX: E86.0 Dehydration (principal); N17.9 Acute kidney failure, unspecified; R55 Syncope and collapse; I48.91 Unspecified atrial fibrillation